=== PATIENT | male | born 1990 | race Caucasian/White ===

== ENCOUNTER 2016-10-01 19:37 | Emergency (ER) | payer SELFPAY ==
[~2016-10-01] VITALS: Ht 177.8 cm; Wt 81.6 kg
[2016-10-01 19:37] VITALS: BP 140/86
[2016-10-01] MEDS ORDERED: TETANUS AND DIPHTHERIA TOX/PF 0.5 ML DISP.SYRIN. VAX IM ONE (19:50)
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
== END 2016-10-01 20:09 | disposition home or self-care (01) ==
LOC: ER 19:37
DX: S01.81XA Laceration without foreign body of other part of head, initial encounter (principal); Y04.0XXA Assault by unarmed brawl or fight, initial encounter; Y93.89 Activity, other specified; Y92.22 Religious institution as the place of occurrence of the external cause; Y99.8 Other external cause status
CPT/HCPCS: 12013; 99284-25